=== PATIENT | male | born 1995 | race Caucasian/White ===

== ENCOUNTER → 2024-09-17 06:50 | Outpatient (REF) | payer BC, SELFPAY | LOC: PAVMRI 06:50 | PROVIDERS: ATTENDING PHYSICIAN Physical Medicine & Rehabilitation | DX: M23.92 Unspecified internal derangement of left knee (principal) | CPT/HCPCS: 73721 ==

== ENCOUNTER → 2025-07-05 13:13 | Outpatient (REF) | payer BC, SELFPAY | LOC: MRI 3T 13:13 | PROVIDERS: ATTENDING PHYSICIAN Physical Medicine & Rehabilitation; FAMILY PHYSICIAN Internal Medicine | DX: S73.192A Other sprain of left hip, initial encounter (principal) | CPT/HCPCS: 27095; 73525; 73722 ==